=== PATIENT | female | born 1955 | race Caucasian/White ===

== ENCOUNTER 2017-03-22 11:26 | Emergency (ER) | payer OTHER ==
[2017-03-22 11:45] VITALS: BP 137/74; PULSE 74; TEMP 97.7; BMI 28.3
[2017-03-22 12:51] LABS: BASOPHIL 0.6 % (0-2.0); EOSINOPHIL 0.7 % (0-4.5); MCH 25.1 pg (25.7-33.7); MCHC 32.4 g/dl (32.0-36.0); MEAN CELL VOLUME 77.5 fl (80-96); MEAN PLT VOLUME 9.3 fl (7.5-11.1); NEUTROPHILS 54.9 % (42.8-82.8); PLATELET COUNT 179 K/MM3 (134-434); RDW 14.2 % (11.6-15.6); WHITE BLOOD COUNT 4.8 K/mm3 (4.0-10.0)
[2017-03-22 12:56] LABS: URINE APPEARANCE CLEAR; URINE BILIRUBIN NEGATIVE (NEGATIVE); URINE BLOOD NEGATIVE (NEGATIVE); URINE COLOR COLORLESS; URINE GLUCOSE (UA) NEGATIVE (NEGATIVE); URINE KETONE NEGATIVE (NEGATIVE); URINE LEUK ESTERASE NEGATIVE (NEGATIVE); URINE NITRITE NEGATIVE (NEGATIVE); URINE PROTEIN NEGATIVE (NEGATIVE); URINE UROBILINOGEN NEGATIVE mg/dL (0.2-1.0)
--- NOTE | 2017-03-22 13:14 | EKG ---
Test Reason : Blood Pressure : / mmHG Vent. Rate : 065 BPM Atrial Rate : 065 BPM P-R Int : 156 ms QRS Dur : 070 ms QT Int : 434 ms P-R-T Axes : 032 -22 038 degrees QTc Int : 451 ms NORMAL SINUS RHYTHM LOW VOLTAGE QRS . CANNOT EXCLUDE INFERIOR WALL TN OF INDETERMINATE AGE ABNORMAL ECG CLINICAL CORRELATION IS RECOMMENDED FOLLOW UP EKG INDICATED Confirmed by JESSICA JULIAN MD ([id number]) on 03/22/2017 1:14:22 PM Referred By: Confirmed By:JESSICA JULIAN MD
[2017-03-22 13:20] LABS: ALBUMIN 3.6 g/dl (3.4-5.0); ANION GAP 6 (8-16); CO2 27 mmol/L (21-32); CREATININE 0.5 mg/dL (0.55-1.02); GLUCOSE,RANDOM 88 mg/dL (74-106); SGPT/ALT 23 U/L (12-78)
[2017-03-22 13:22] LABS: ALK PHOS 100 U/L (45-117); BILIRUBIN,TOTAL 0.3 mg/dL (0.2-1.0); TOT PROT 6.8 g/dl (6.4-8.2)
[2017-03-22] MEDS ORDERED: SODIUM CHLORIDE 1,000 ML IV STA (13:26)
[2017-03-22] MEDS ORDERED: ACETAMINOPHEN 1000 MG/100 ML VIAL (NON FORMULARY) IVPB ONE (13:26)
[2017-03-22] MEDS ORDERED: ACETAMINOPHEN INJECTION 100 ML IVPB ONE (13:27)
[2017-03-22 13:49] LABS: SGOT/AST 19 U/L (15-37)
--- NOTE | 2017-03-22 14:25 | PDOC ---
History of Present Illness - General Chief Complaint: Headache Stated Complaint: LIGHTHEADED Time Seen by Provider: 03/22/17 12:02 History Source: Patient Exam Limitations: No Limitations - History of Present Illness Initial Comments: 03/22/17 12:19 61-year-old female with no pertinent medical history presents to the ED with complaints of headache since yesterday associated with mild lightheadedness and photosensitivity. Patient states on Tuesday had started Fosamax and yesterday had started a medication for bladder control and then last night developed of frontal throbbing pressure with retro-orbital pressure. Patient denies visual changes, neck stiffness, nausea, or weakness. Patient denies recent travel, recent illness, patient also denies recent change in diet . Patient states she thought her blood pressure was high so took her friend's enalapril this morning which she states made her symptoms worse. Timing/Duration: reports: 24 hours Severity: Yes: moderate Associated Symptoms: reports: weakness Past History - Travel Traveled outside of the country in the last 30 days: No Close contact w/someone who was outside of country & ill: No - Past Medical History Allergies/Adverse Reactions: Allergies Allergy/AdvReac Type Severity Reaction Status Date / Time amoxicillin trihydrate Allergy Verified 03/22/17 11:38 [From Augmentin] potassium clavulanate Allergy Verified 03/22/17 11:38 [From Augmentin] Home Medications: Ambulatory Orders Alendronate Na [Fosamax] 70 mg PO Q7D 03/22/17 Alfuzosin HCl [Alfuzosin HCl ER] 10 mg PO DAILY 03/22/17 Cholecalciferol (Vitamin D3) [Vitamin D3] 5,000 unit PO Q7D 03/22/17 Cancer: Yes (Breast) Other medical history: Pt denies - Immunization History Immunization Up to Date: Yes - Suicide/Smoking/Psychosocial Hx Smoking History: Never smoked Have you smoked in the past 12 months: No Information on smoking cessation initiated: No Hx Alcohol Use: No Drug/Substance Use Hx: No Substance Use Type: None Patient Lives Alone: Yes Lives with/in: lives alone Review of Systems - Review of Systems Able to Perform ROS?: Yes Constitutional: No: Symptoms Reported HEENTM: No: Symptoms Reported Respiratory: No: Symptoms reported Cardiac (ROS): Yes: Lightheadedness ABD/GI: No: Symptoms Reported : No: Symptoms Reported Musculoskeletal: No: Symptoms Reported Integumentary: No: Symptoms Reported Neurological: Yes: Headache, Dizziness Endocrine: No: Symptoms Reported Hematologic/Lymphatic: No: Symptoms Reported *Physical Exam - Vital Signs Last Vital Signs Temp Pulse Resp BP Pulse Ox 97.7 F 74 16 137/74 98 03/22/17 11:40 03/22/17 11:40 03/22/17 11:40 03/22/17 11:40 03/22/17 11:40 - Physical Exam General Appearance: Yes: Nourished, Appropriately Dressed. No: Apparent Distress HEENT: positive: EOMI, CHRISTO, TMs Normal, Pharynx Normal. negative: Pale Conjunctivae Neck: positive: Supple Respiratory/Chest: positive: Lungs Clear, Normal Breath Sounds. negative: Respiratory Distress, Accessory Muscle Use Cardiovascular: positive: Regular Rhythm, Regular Rate. negative: Murmur Gastrointestinal/Abdominal: positive: Soft. negative: Tenderness Extremity: positive: Normal Capillary Refill Integumentary: positive: Normal Color, Warm, Moist Neurologic: positive: Motor Strength 5/5 (ambulatory) ED Treatment Course - LABORATORY CBC & Chemistry Diagram: 03/22/17 12:09 03/22/17 12:09 - ADDITIONAL ORDERS Additional order review: Laboratory Results 03/22/17 03/22/17 12:09 12:09 Sodium 139 Potassium 4.3 Chloride 106 Carbon Dioxide 27 Anion Gap 6 L BUN 10 Creatinine 0.5 L Creat Clearance w eGFR > 60 Random Glucose 88 Calcium 9.0 Total Bilirubin 0.3 AST 19 ALT 23 Alkaline Phosphatase 100 Total Protein 6.8 Albumin 3.6 Urine Color Colorless Urine Appearance Clear Urine pH 6.0 Urine Protein Negative Urine Glucose (UA) Negative Urine Ketones Negative Urine Blood Negative Urine Nitrite Negative Urine Bilirubin Negative Urine Urobilinogen Negative 03/22/17 12:09 RBC 5.14 MCV 77.5 L MCHC 32.4 RDW 14.2 MPV 9.3 Neutrophils % 54.9 Lymphocytes % 36.5 Monocytes % 7.3 Eosinophils % 0.7 Basophils % 0.6 - RADIOLOGY Radiology Studies Ordered: Category Date Time Status HEAD CT WITHOUT CONTRAST [CT] Stat CT Scan 03/22/17 13:25 Completed - Medications Given in the ED: ED Medications Discontinued Medications Generic Name Dose Route Start Last Admin Trade Name Freq PRN Reason Stop Dose Admin Acetaminophen 1,000 mg 03/22/17 13:26 03/22/17 13:34 Ofirmev Injection - IVPB 03/22/17 13:27 1,000 mg ONCE ONE Administration Medical Decision Making - Medical Decision Making 03/22/17 2:23 Patient with complaints of headache, photosensitivity mild lightheadedness since last night. Patient on exam had no neural focal deficits and is likely experiencing side effects of the Fosamax and anticholinergic medication for bladder control. Patient symptoms of lightheadedness began after taking a friend 's and Avapro. Patient currently has normal vital signs here in the ER but will order labs including a head CT. 03/22/17 14:24 Laboratory Tests 03/22/17 03/22/17 03/22/17 12:09 12:09 12:09 WBC 4.8 Hgb 12.9 Hct 39.8 Plt Count 179 Sodium 139 Potassium 4.3 Chloride 106 Carbon Dioxide 27 Anion Gap 6 L BUN 10 Creatinine 0.5 L Creat Clearance w eGFR > 60 Random Glucose 88 Calcium 9.0 AST 19 ALT 23 Albumin 3.6 Urine Ketones Negative Urine Nitrite Negative Urine Urobilinogen Negative 03/22/17 14:[address] shows no acute intracranial hemorrhage. A 1.4 x 1.1 cm mildly osteo- arising from the inner table of the right frontal lobe is noted without intracranial mass effect, midline shift herniation pattern or hydrocephalus. Patient will be discharged home with recommendations to stop medication and contact the physician. *DC/Admit/Observation/Transfer Diagnosis at time of Disposition: Headache Qualifiers: Headache type: tension-type Headache chronicity pattern: acute headache Intractability: not intractable Qualified Code(s): G44.209 - Tension-type headache, unspecified, not intractable - Discharge Dispostion Disposition: HOME Condition at time of disposition: Improved - Referrals Referrals: Octavio Saavedra MD [Primary Care Provider] - - Patient Instructions Printed Discharge Instructions: DI for Headache Additional Instructions: At this point I do recommend stopping the medication in contacting your physician to discuss today's visit and symptoms experiencing. If headaches return please take Tylenol but if symptoms worsen please return to the ED.
== END 2017-03-22 15:13 | disposition home or self-care (01) ==
LOC: JER 11:26
PROC: 3E033NZ Introduction of Analgesics, Hypnotics, Sedatives into Peripheral Vein, Percutaneous Approach (ICD-10-PCS; principal; 2017-03-22)
PROC: 3E0337Z Introduction of Electrolytic and Water Balance Substance into Peripheral Vein, Percutaneous Approach (ICD-10-PCS; 2017-03-22)
DX: G44.209 Tension-type headache, unspecified, not intractable (principal); Z85.3 Personal history of malignant neoplasm of breast
CPT/HCPCS: 36415; 70450-TC; 80053; 81003; 85025; 93005; 93010; 99283-25

== ENCOUNTER 2018-04-24 10:14 | Emergency (ER) | payer OTHER ==
[2018-04-24 10:41] VITALS: BMI 27.8
[2018-04-24] MEDS ORDERED: SODIUM CHLORIDE 0.9% 1000 ML INFUS.BAG IV ONE (11:02)
[2018-04-24] MEDS ORDERED: NAPROXEN 500 MG TABLET (FP) PO ONE (11:02)
--- NOTE | 2018-04-24 11:09 | PDOC ---
History of Present Illness - General Chief Complaint: Respiratory Stated Complaint: SICK Time Seen by Provider: 04/24/18 10:54 History Source: Patient Exam Limitations: No Limitations - History of Present Illness Initial Comments: 04/24/18 11:06 The patient is a 62F with a PMH of breast ca s/p mastectomy and chemo, last chemo 2 years ago who presents to the ER with multiple complaints. The patient states that she's had 3 days of cough, headache, sore throat, nausea, and body aches. She denies CP and SOB. She denies any sick contacts. She admits to a productive cough w/ white sputum. She states that she went to see her doctor and many people in the waiting room and similar symptoms. Past History - Past Medical History Allergies/Adverse Reactions: Allergies Allergy/AdvReac Type Severity Reaction Status Date / Time amoxicillin trihydrate Allergy Verified 04/24/18 10:37 [From Augmentin] potassium clavulanate Allergy Verified 04/24/18 10:37 [From Augmentin] Home Medications: Ambulatory Orders NK [No Known Home Medication] 04/24/18 Cancer: Yes (Breast) COPD: No Other medical history: chemo 2015 - Immunization History Immunization Up to Date: Yes - Suicide/Smoking/Psychosocial Hx Smoking History: Never smoked Have you smoked in the past 12 months: No Hx Alcohol Use: No Drug/Substance Use Hx: No Substance Use Type: None Review of Systems - Review of Systems Able to Perform ROS?: Yes Comments:: 04/24/18 11:13 GENERAL/CONSTITUTIONAL: Positive for fevers and chills. No weakness. HEAD, EYES, EARS, NOSE AND THROAT: Positive for sore throat. No change in vision. No ear pain or discharge. CARDIOVASCULAR: No chest pain, palpitations, or lightheadedness. RESPIRATORY: Positive for cough. No wheezing, shortness of breath, or hemoptysis. GASTROINTESTINAL: Positive for nausea. No vomiting, diarrhea, constipation, or abdominal pain. GENITOURINARY: No dysuria, frequency, hematuria, or change in urination. MUSCULOSKELETAL: Positive for myalgias. No neck or back pain. SKIN: No rash or lesions. NEUROLOGIC: Positive for headache. No numbness, tingling, weakness, loss of consciousness, or change in strength/sensation. ENDOCRINE: No increased thirst. No abnormal weight change. HEMATOLOGIC/LYMPHATIC: No anemia, easy bleeding, or history of blood clots. ALLERGIC/IMMUNOLOGIC: No hives or skin allergy. Is the patient limited Italian proficient: No *Physical Exam - Vital Signs Last Vital Signs Temp Pulse Resp BP Pulse Ox 99.6 F 94 H 16 149/88 99 04/24/18 10:38 04/24/18 10:38 04/24/18 10:38 04/24/18 10:38 04/24/18 10:38 - Physical Exam Comments: 04/24/18 11:14 GENERAL: Well developed, well nourished. Awake and alert. No acute distress. HEENT: Normocephalic, atraumatic. Hearing grossly normal. Moist mucous membranes. PERRLA, EOMI. No conjunctival pallor. Sclera are non-icteric. Oropharynx is clear. Mild cervical lympadenopathy, L>R. NECK: Supple. Full ROM. No JVD. CARDIOVASCULAR: Regular rate and rhythm. No murmurs, rubs, or gallops. PULMONARY: No evidence of respiratory distress. Lungs clear to auscultation bilaterally. No wheezing, rales or rhonchi. ABDOMINAL: Soft. Tenderness in deep palpation in suprapubic abdomen. Non- distended. No rebound or guarding. GENITOURINARY: No CVA tenderness bilaterally. MUSCULOSKELETAL: Normal range of motion at all joints. No bony deformities or tenderness. EXTREMITIES: No cyanosis. No clubbing. No edema. No calf tenderness or swelling. SKIN: Warm and dry. Normal capillary refill. No rashes. No jaundice. NEUROLOGICAL: Alert, awake, appropriate. Cranial nerves 2-12 grossly intact. Normal speech. Gait is normal without ataxia. PSYCHIATRIC: Cooperative. Good eye contact. Appropriate mood and affect. ED Treatment Course - LABORATORY CBC & Chemistry Diagram: 04/24/18 11:02 04/24/18 11:20 - RADIOLOGY Radiology Studies Ordered: Category Date Time Status CHEST PA & LAT [RAD] Stat Radiology 04/24/18 11:02 Ordered Medical Decision Making - Medical Decision Making 04/24/18 11:15 The patient is a 62F with no PMH who presents to the ER with flu-like symptoms, day 3, therefore out of the window for oseltamivir. Will r/o other causes with CXR and CBC, CMP. Will treat with 1 L NS IV and naprosyn. 10/29/18 13:31 All labs WNL. CXR negative. Pt states she feels better. WIll d/c with PCP f/u. *DC/Admit/Observation/Transfer Diagnosis at time of Disposition: Viral syndrome - Discharge Dispostion Disposition: HOME Condition at time of disposition: Stable Decision to Admit order: No - Referrals Referrals: Octavio Saavedra MD [Primary Care Provider] - - Patient Instructions Printed Discharge Instructions: Influenza (Alternative Therapy) Additional Instructions: Please follow up with your primary care physician in 2-3 days. Please return to the ER if you have any signs or symptoms of chest pain, shortness of breath, uncontrollable fever, chills, nausea, vomiting, numbness, tingling, or weakness in any part of your body, changes in vision, or slurred speech. Please take your medications as prescribed. Please return to the ER if symptoms persist, worsen, or new symptoms arise. - Post Discharge Activity
[2018-04-24] MEDS ORDERED: NAPROXEN 500 MG TABLET (FP) ONE (11:25)
[2018-04-24 11:30] LABS: BASO % 0.7 % (0-2.0); EOS % 0.7 % (0-4.5); HEMOGLOBIN 13.8 GM/dL (10.7-15.3); LYMPH % 19.6 % (8-40); MCH 24.9 pg (25.7-33.7); MEAN CELL VOLUME 77.8 fl (80-96); MEAN PLT VOLUME 9.4 fl (7.5-11.1); MONO % 9.4 % (3.8-10.2); NEUT % 69.6 % (42.8-82.8); PLATELET COUNT 150 K/MM3 (134-434); RBC 5.53 M/mm3 (3.60-5.2); WHITE BLOOD COUNT 4.8 K/mm3 (4.0-10.0)
[2018-04-24 11:31] LABS: URINE APPEARANCE CLEAR; URINE BILIRUBIN NEGATIVE (<2.0 mg/dL); URINE COLOR STRAW; URINE GLUCOSE (UA) NEGATIVE (NEGATIVE); URINE KETONE NEGATIVE (NEGATIVE); URINE LEUK ESTERASE NEGATIVE (NEGATIVE); URINE NITRITE NEGATIVE (NEGATIVE); URINE PROTEIN NEGATIVE (NEGATIVE); URINE UROBILINOGEN NEGATIVE mg/dL (0.2-1.0)
[2018-04-24 12:09] LABS: ALBUMIN 3.8 g/dl (3.4-5.0); ALK PHOS 64 U/L (45-117); ANION GAP 8 MMOL/L (8-16); BILIRUBIN,TOTAL 0.4 mg/dL (0.2-1); BLOOD UREA NITROGEN 6 mg/dL (7-18); CALCIUM 8.7 mg/dL (8.5-10.1); CHLORIDE 106 mmol/L (98-107); CO2 26 mmol/L (21-32); CREATININE 0.4 mg/dL (0.55-1.3); GLUCOSE,RANDOM 96 mg/dL (74-106); POTASSIUM 4.7 mmol/L (3.5-5.1); SGOT/AST 25 U/L (15-37); SGPT/ALT 24 U/L (13-61); SODIUM 140 mmol/L (136-145); TOT PROT 7.3 g/dl (6.4-8.2)
[2018-04-24 13:42] VITALS: BP 119/66; PULSE 82; TEMP 99.3
--- NOTE | 2018-04-24 14:02 | PDOC ---
Attending Attestation - Resident Resident Name: [email or web address] - ED Attending Attestation I have performed the following: I have examined & evaluated the patient, The case was reviewed & discussed with the resident, I agree w/resident's findings & plan, Exceptions are as noted - HPI HPI: 04/24/18 13:59 62 yo F with h/o breast ca, last chemo 2 yrs ago. here with cough congestion subjective fever. no cp no sob. no f/c does have a lot of nasal congestions. no known sick contacts. no travel. no rash. - Physicial Exam PE: 04/24/18 14:00 on exam awake alert clear rhinorrhea. lungs with wheezing during cough only. heart rrr no mrg abd soft nt nd. ext wwp no edema. no rash. skin warm and dry. - Medical Decision Making 04/24/18 14:00 differential pna, flu, other viral syndrome. plan nebs, , reassess. pt with cxr negative for infection. will treat with nebulizer. feels somewhat improved. dc home bronchitis. fu pcp.
== END 2018-04-24 14:25 | disposition home or self-care (01) ==
LOC: JER 10:14
DX: B34.9 Viral infection, unspecified (principal); Z85.3 Personal history of malignant neoplasm of breast; Z90.10 Acquired absence of unspecified breast and nipple
CPT/HCPCS: 36415; 71046-TC-FY; 80053; 81003; 85025; 99283-25; J7030